=== PATIENT | male | born 1935 | race Caucasian/White ===

== ENCOUNTER 2019-01-11 05:24 | Day surgery (SDC) | payer OTHER ==
[2018-12-31 13:32] VITALS: BMI 30.4
[2019-01-11] MEDS ORDERED: SODIUM CHLORIDE 0.9% P/F 10 ML VIAL IJ ONE (12:28)
[2019-01-11] MEDS ORDERED: ceFAZolin SODIUM 1 GM VIAL ONE (12:28)
[2019-01-11] MEDS ORDERED: MIDAZOLAM HCL 2 MG/2 ML SINGLE DOSE VIAL ONE (12:29)
[2019-01-11] MEDS ORDERED: PROPOFOL 20 ML ONE ×2 (12:29→12:49)
--- NOTE | 2019-01-11 13:24 | HP ---
History & Physical Update - Plan Currently as noted:: Creation AV fistula left arm
[2019-01-11] MEDS ORDERED: ONDANSETRON 4 MG/2 ML VIAL IVPUSH PRN (13:25)
[2019-01-11] MEDS ORDERED: oxyCODONE HCL 5 MG TABLET PO PRN ×2 (13:25)
[2019-01-11] MEDS ORDERED: HEPARIN NA (PORCINE) 5,000 UNITS/ML 1ML VIAL ONE (13:25)
[2019-01-11] MEDS ORDERED: BUPIVACAINE HCL/PF 0.5% (5 MG/ML) 30 ML VIAL IJ ONE (13:25)
[2019-01-11] MEDS ORDERED: LIDOCAINE HCL 1%, 10 MG/ML (20ML VIAL) ONE (13:25)
[2019-01-11] MEDS ORDERED: SODIUM CHLORIDE 1,000 ML IV SCH (13:30)
[2019-01-11] MEDS ORDERED: LIDOCAINE HCL 1%, 10 MG/ML (20ML VIAL) NR ONE ×3 (13:53→14:15)
[2019-01-11] MEDS ORDERED: ceFAZolin 2 GRAM PREMIX BAG IVPB ONE (14:13)
[2019-01-11] MEDS ORDERED: POVIDONE-IODINE OINTMENT 10% - 28.4 GM TUBE ONE (15:19)
--- NOTE | 2019-01-11 15:28 | OP ---
Operative Note - Note: Operative Date: 01/11/19 Pre-Operative Diagnosis: Renal failure Operation: Creation AV fistula left arm Findings: Patent cephalic vein and proximal ulnar artery in forearm Post-Operative Diagnosis: Same as Pre-op Surgeon: Ricardo King Anesthesiologist/SENIOR TECHNICAL EDITOR: Nazia Duran Anesthesia: Fractional
[2019-01-11 16:58] VITALS: TEMP 97.8
[2019-01-11 19:23] VITALS: BP 147/87; PULSE 57
--- NOTE | 2019-01-13 18:11 | OP ---
DATE OF OPERATION: 01/11/2019 SURGEON: Ricardo King MD PROCEDURE: Creation of arteriovenous fistula left arm. PREOPERATIVE DIAGNOSIS: Renal failure. POSTOPERATIVE DIAGNOSIS: Renal failure. ANESTHESIA: Fractional. ANESTHESIOLOGIST: Nazia Duran MD OPERATIVE FINDINGS: The cephalic vein and proximal ulnar artery were present in the proximal forearm. OPERATIVE PROCEDURE: Following routine patient identification, with side and site verification, intravenous sedation was established. The left arm was prepped with ChloraPrep. A time-out was performed. Lidocaine 1% was infiltrated in the antecubital fossa. A longitudinal incision was made. The subcutaneous tissues were divided sharply using cautery for hemostasis. The cephalic vein was mobilized for the length of the incision. It was ligated distally and incised. There was no patent lumen present at this level, and the vein was then incised more proximally. The vein was then flushed with heparin and saline solution. Number 5 and number 8 feeding tubes were passed proximally without resistance. The vein was occluded with a small bull dog clamp. The proximal portion of the ulnar artery was exposed under the deep fascia. The distal brachial artery and radial artery were identified as well. The ulnar artery was mobilized for approximately 2 cm in length and encircled with vessel loops. The artery was occluded with the vessel loops and opened on exposed surface with a 6 -mm arteriotomy. Inflow and back bleeding were checked, and the vessel was filled with heparin solution. The vein was then ligated as far distally as possible and then amputated. It was spatulated. It was anastomosed end to side of the artery with running suture of 6-0 Prolene. Prior to completion of the suture line, the artery was allowed to back bleed and flush, and the vein was flushed with heparin solution. The suture line was completed and the vessels were released. Bleeding from the suture line was controlled with Surgicel. Evaluation of the vein revealed a weak pulse present in the proximal portion of the cephalic vein above the elbow. It appeared that the flow into the venous branch was diminished and the concern was that there was a valve obstructing flow. Therefore, the artery and vein were occluded and the vein was opened through the side branch just proximal to the anastomosis. The vein was then incised distally in order to break up the obstructing valve leaflet. Inflow was checked and found to be excellent. The vein was then closed using the side branch as a small patch, using 6-0 Prolene sutures, and then clamps were removed and there was improvement in the distal flow in the fistula. Surgicel was applied to control any bleeding. The wound was closed with interrupted suture of 3-0 Vicryl and skin eula. Sterile dressings were applied. The patient was taken to the recovery room in stable condition. Wilmer [id number] MTDD
== END 2019-01-11 19:20 | disposition home or self-care (01) ==
LOC: JASU-SURG 05:24
PROVIDERS: ATTEND Surgery
PROC: 031A0ZF Bypass Left Ulnar Artery to Lower Arm Vein, Open Approach (ICD-10-PCS; principal; 2019-01-11 11:00)
DX: I13.11 Hypertensive heart and chronic kidney disease without heart failure, with stage 5 chronic kidney disease, or end stage renal disease (principal); N18.6 End stage renal disease; Z99.2 Dependence on renal dialysis; I25.10 Atherosclerotic heart disease of native coronary artery without angina pectoris; D64.9 Anemia, unspecified
CPT/HCPCS: 94760; J1644